=== PATIENT | male | born 1960 | race Caucasian/White ===

== ENCOUNTER → 2024-08-09 13:18 | Outpatient (REF) | payer BC, SELFPAY | LOC: CLAB 13:18 | PROVIDERS: ATTENDING PHYSICIAN Student in an Organized Health Care Education/Training Program | DX: M10.9 Gout, unspecified (principal) | CPT/HCPCS: 88304 ==

== ENCOUNTER 2025-04-22 11:56 | Emergency (ER) | payer BC, SELFPAY ==
[2025-04-22 12:01] VITALS: BP 154/103
[2025-04-22 12:24] LABS: % Basophils 0.5 % (0-2); % Eosinophils 2.1 % (0-6); % Immature Granulocytes 0.2 % (0-0.5); % Lymphocytes 17.1 % (20.5-51.1); % Monocytes 10.9 % (1.7-9.3); % Neutrophils 69.2 % (42.2-75.2); Absolute Basophils 0.1 10^3/uL (0-0.2); Absolute Eosinophils 0.2 10^3/uL (0-0.7); Absolute Lymphocytes 1.6 10^3/uL (1.2-3.4); Absolute Neutrophils 6.3 10^3/uL (1.4-6.5); Hematocrit 44.1 % (39.0-52.0); Hemoglobin 15.3 g/dL (13.0-18.0); Mean Corp Hgb Conc. 34.7 g/dL (33.0-37.0); Mean Corpuscular Hgb 31.7 pg (27.0-31.0); Mean Corpuscular Volume 91.3 fL (80.0-94.0); Mean Platelet Volume 10.8 fL (7.4-10.4); Nucleated Red Blood Cells % 0 % (-); Platelet Count 227 10^3/uL (130-400); Red Blood Cell Count 4.83 10^6/uL (4.70-6.10); Red Cell Dist. Width 11.8 % (11.5-14.5); White Blood Cell Count 9.2 10^3/uL (4.8-10.8)
[2025-04-22 12:29] LABS: INR 1.05
[2025-04-22 12:54] LABS: ALT (SGPT) 27 U/L (0-50); AST (SGOT) 28 U/L (17-59); Albumin 4.5 g/dl (3.5-5.0); Alkaline Phosphatase 79 U/L (38-126); Blood Urea Nitrogen 18 mg/dl (9-20); Calcium 9.8 mg/dl (8.4-10.2); Carbon Dioxide 26 mmol/L (22-30); Chloride 108 mmol/L (98-107); Glucose 102 mg/dl (70-99); Potassium 4.9 mmol/L (3.5-5.1); Sodium 141 mmol/L (135-145); Total Protein 7.5 g/dl (6.3-8.2); eGFR > 60.00
[2025-04-22 14:28] LABS: D-Dimer 1.81 ug/mlFEU (0.00-0.50)
--- NOTE | 2025-04-22 14:48 | ED.GENMED ---
History of Present Illness
General
Chief Complaint: DVT/Possible Blood Clot
Source: patient
Exam Limitations: none
Time Seen by Provider: 04/22/25 13:22
Nursing documentation reviewed up to this point in time: agreed with
History of Present Illness
History of Present Illness:
Note:
CHIEF COMPLAINT(S)
Left foot and knee swelling with pain, worsened by recent travel.
HISTORY OF PRESENT ILLNESS
The patient is a 64-year-old male who presents with swelling and significant discomfort in the left foot and knee, which has progressively worsened over the past couple of weeks. The symptoms started prior to a trip to [facility], during which the
condition aggravated notably, particularly after the flight. The patient noted pain upon ambulation and now requires the use of a cane for walking. Upon returning from [facility], the knee swelling intensified. There was no associated redness, warmth, or
fever reported. The patient denies any known injury preceding the swelling.
He has a history of being physically active, often cycling. The ultrasound ruled out the presence of a blood clot, but it did reveal a small amount of fluid around the knee. The patient uses compression stockings and elevates the leg when possible,
although the recent extended travel and activity may have contributed to the worsening of symptoms.
Upon examination, the affected area is swollen but lacks tenderness. Importantly, the condition presents unilaterally on the left side, suggesting an unlikely relation to systemic issues such as heart or kidney failure. A venous insufficiency,
possibly venous stasis, is suspected to be the most probable cause, albeit without diagnosis-specific confirmation at this time.
PHYSICAL EXAM
- Extremities: Noticeable swelling in the left knee, good pulses in the foot and ankle area, no warmth or redness observed. Tenderness present upon palpation with movement.
- Nursing notes reviewed and vital signs reviewed.
PROBLEM LIST
- Acute: Left knee and foot swelling with associated pain.
- Differential diagnosis considerations include venous insufficiency and venous stasis.
PLAN
- Order a D-dimer test for reassurance; if the result is negative, it significantly reduces the risk of a missed clot. Should it be positive, follow-up will be required in one week to retest.
- The patient is instructed to follow up closely with a primary care physician or a vascular specialist for further assessment and management.
- Discuss continued use of compression stockings and elevating the legs as much as possible to assist in symptom management.
DIFFERENTIAL DIAGNOSIS
The Differential Diagnosis includes, in no particular order and is not limited to:
1. Venous insufficiency
2. Venous stasis
3. Chronic venous hypertension
4. Lymphatic obstruction
5. Deep vein thrombosis (not supported by ultrasound findings)
6. Cellulitis (unlikely due to lack of redness and warmth)
7. Gout
8. Arthritis (osteoarthritis or reactive arthritis)
9. Soft tissue injury
10. Heart failure (less likely as symptoms are unilateral)
Review of Systems
Review of Systems
Allergies reviewed?: Yes
All Other Systems: ROS reviewed and negative except as documented in HPI and ROS
Phy Exam
Physical Exam
Physical Exam:
GENERAL: Alert , in no apparent distress
EYE: pupils equal and reactive
NECK: Supple, no significant adenopathy.
ENT: o/p clr, mmm.
CARDIAC: Regular rate and rhythm .
LUNGS: Clear breath sounds bilaterally, no acute respiratory distress, no wheezes/rales/rhonchi
ABDOMEN: Soft, without focal tenderness, no r/g, no cvat
NEUROLOGICAL: Alert and oriented, no focal neuro deficits
SKIN: Warm and dry, skin intact.
MUSCULOSKELETAL: Vague +1 edema to the mid cowart distally. Normal distal pulses., well perfused.
PSYCH: Normal and appropriate interaction.
Course
Orders/Labs/Results
Orders:
Orders
04/22/25 12:03
Periph Venous Lwr Ext Left US [US Periph Venous LOWER Ext LT] Urgent
Comment:
Reason For Exam: swelling
04/22/25 12:13
Complete Blood Count/With Diff Urgent
Comprehensive Metabolic Panel Urgent
Prothrombin Time Urgent
04/22/25 13:56
Add On- LAB Urgent
Tests Added?: dimer
04/22/25 14:00
D-Dimer Urgent
Abnormal Lab Results
04/22/25 04/22/25
12:13 14:00
MCH 31.7 H pg
(27.0-31.0)
MPV 10.8 H fL
(7.4-10.4)
Absolute Monos (auto) 1.0 H 10^3/uL
(0.1-0.6)
Lymphocytes % 17.1 L %
(20.5-51.1)
Monocytes % 10.9 H %
(1.7-9.3)
D-Dimer 1.81 H ug/mlFEU
(0.00-0.50)
Chloride 108 H mmol/L
(98-107)
Glucose 102 H mg/dl
(70-99)
04/22/25 12:13
04/22/25 12:13
Vital Signs
Initial and Last Documented VS:
Initial Vital Signs
Temp Pulse Resp BP Pulse Ox
98.4 F 97 18 154/103 98
04/22/25 12:01 04/22/25 12:01 04/22/25 12:01 04/22/25 12:01 04/22/25 12:01
Last Documented Vital Signs
Temp Pulse Resp BP Pulse Ox
98.4 F 97 18 154/103 98
04/22/25 12:01 04/22/25 12:01 04/22/25 12:01 04/22/25 12:01 04/22/25 13:38
*Critical Care Note
Total Time (30-74mins, 75-104mins- exclusive of procedures): Not Applicable
ED Attending Note
-
Portions of this chart may have been created with voice recognition software.� Occasional wrong word or��sound alike� substitutions may have occurred due to the inherent limitations of voice recognition software.
Discharge Plan
Departure
Patient Disposition: Home (Routine Discharge)
Date of Disposition: 04/22/25
Time of Disposition: 14:50
Patient with high blood pressure during this ER visit?: No
Condition: Good
Covid-19: Not Applicable
Discharge Problem:
Leg swelling
Instructions: Swelling
Referrals:
Trevin Gaytan MD [Family Provider, [facility]]
Activity Restrictions/Additional Instructions:
You came to the emergency department today with concerns of leg swelling. Here your reassuring assessment with normal ultrasound you did have an elevated D-dimer level. Unclear the specific reason for it elevation but you should follow-up closely
as an outpatient for further assessment. Return for any worsening, new or concerning symptoms.
Interventions
Interventions:
*Risk Screen - Suicide Last Done: 04/22/25 12:01
*General Assessment Last Done: 04/22/25 12:01
*Neglect/Abuse Screening Last Done: 04/22/25 12:01
*ED- Fall Risk Assessment Last Done: 04/22/25 12:01
*ED COVID-19 Vaccine History Last Done: 04/22/25 12:01
ED- Cardiac Assessment Last Done: 04/22/25 13:38
ED- Pulmonary Assessment Last Done: 04/22/25 13:38
ED-Peripheral Vascular Assessment Last Done: 04/22/25 13:38
ED-Skin Assessment Last Done: 04/22/25 13:38
Discharge Date and Time
Print Language: CZECH
== END 2025-04-22 15:05 | disposition home or self-care (01) ==
LOC: EMR 11:56
PROVIDERS: Emergency Medicine; Physician Assistant; EMERGENCY PHYSICIAN Emergency Medicine; FAMILY PHYSICIAN Family Medicine
DX: R22.42 Localized swelling, mass and lump, left lower limb (principal)
CPT/HCPCS: 99285; 80053; 85025; 85379; 85610; 93971

== ENCOUNTER 2025-08-30 06:13 | Day surgery (SDC) | payer BC, SELFPAY ==
[2025-08-28 09:07] LABS: Hematocrit 44.5 % (39.0-52.0); Hemoglobin 15.3 g/dL (13.0-18.0); Mean Corp Hgb Conc. 34.4 g/dL (33.0-37.0); Mean Corpuscular Volume 91.2 fL (80.0-94.0); Platelet Count 195 10^3/uL (130-400); Red Cell Dist. Width 12.1 % (11.5-14.5)
[2025-08-28 09:50] LABS: ALT (SGPT) 38 U/L (0-50); AST (SGOT) 34 U/L (17-59); Albumin 4.4 g/dl (3.5-5.0); Alkaline Phosphatase 94 U/L (38-126); Blood Urea Nitrogen 14 mg/dl (9-20); Calcium 8.9 mg/dl (8.4-10.2); Carbon Dioxide 27 mmol/L (22-30); Chloride 105 mmol/L (98-107); Glucose 85 mg/dl (70-99); HDL Cholesterol 71 mg/dl; LDL Cholesterol, Calculated 108 mg/dl; Potassium 4.0 mmol/L (3.5-5.1); Sodium 139 mmol/L (135-145); Total Protein 6.9 g/dl (6.3-8.2); Very Low Density Lipoprotein 10 mg/dl (0-30); eGFR > 60.00
[2025-08-28 10:09] LABS: PSA, Total - Screen 1.53 ng/ml (0.0-4.0)
[2025-08-28 14:09] VITALS: BMI 26.4
[2025-08-30] VITALS (11 sets, daily range): BP systolic 113–158; BP diastolic 73–108; BMI 26.4
[2025-08-30] MEDS: NORMOSOL-R/PLASMALYTE-A 1000 IV (09:47)
[2025-08-30] MEDS: TYLENOL 1000 MG PO (09:47)
--- NOTE | 2025-08-30 12:39 | W.IMMPOSTOP ---
Surgical Immed Post Op Note
-
Primary Surgeon: Pete Drummond MD
Assisting Surgeon:
Pre-op Diagnosis: left knee lateral meniscus tear
Post-op Diagnosis: left knee lateral meniscus tear
Procedure Performed: arthroscopic left knee partial lateral meniscectomy
Anesthesia Type: general
Specimen / Cultures: calcified meniscus X1 for pathology
Estimated Blood Loss: 1mL
Complications: none apparent
Tourniquet time: 39 minutes @ 250 mmHg
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
Operative dictation #: [id number]
== END 2025-08-30 13:30 | disposition home or self-care (01) ==
LOC: SDS 06:13
PROVIDERS: Nurse Practitioner Family; ATTENDING PHYSICIAN Student in an Organized Health Care Education/Training Program; FAMILY PHYSICIAN Family Medicine
DX: S83.282A Other tear of lateral meniscus, current injury, left knee, initial encounter (principal); X58.XXXA Exposure to other specified factors, initial encounter; M17.12 Unilateral primary osteoarthritis, left knee
CPT/HCPCS: 29881; 80053; 80061; 84443; 85027; 88304; 93005; G0103